=== PATIENT | male | born 1975 | race Caucasian/White ===

== ENCOUNTER 2018-12-03 09:00 | Inpatient (IN) | payer BC, OTHER ==
[~2018-12-03] VITALS: Ht 190.5 cm; Wt 197.2 kg
[2018-12-03 09:00] VITALS: BP 190/141
[~2018-12-03 09:00] MED LIST: ASPIRIN EC325 MG PO; BENICAR20 MG; BENICAR40 MG PO; CLEOCIN HCL150 MG PO; FORTESTA60 GM; HYDROCHLOROTHIA25 M2 PO; LIPITOR 10 MG10 M1 PO; MEDROLDOSEPACK PO; NOHOMEMEDICATIONS; PERCOCET 5-3251 EACH PO
[2018-12-03 09:19] LABS: ABSOLUTE NEUTROPHILS 7.4 thou/uL (1.4-8.2); EOSINOPHILS 1.4 % (0.0-3.0); HEMATOCRIT 47.3 % (42.0-52.0); HEMOGLOBIN 16.1 gm/dL (14.0-18.0); LYMPHOCYTES 14.8 % (24.0-44.0); MCH 28.6 pg (26.0-34.0); MCHC 34.1 g/dL (28.0-37.0); MCV 83.8 fL (80.0-100.0); MONOCYTES 7.4 % (1.0-8.0); PLATELET COUNT 214 thou/uL (150-400); POLYS 75.4 % (36.0-66.0); RBC 5.65 mil/uL (4.50-6.00); RDW 14.8 % (10.5-14.5); WBC 9.8 thou/uL (4.0-11.0)
[2018-12-03 09:29] LABS: ANION GAP 8 mmol/L (7-16); BUN 12 mg/dL (7-18); CHLORIDE 98 mmol/L (98-107); CO2 30 mmol/L (21-32); CREATININE 1.2 mg/dL (0.7-1.3); GLUCOSE 129 mg/dL (74-106); POTASSIUM 3.5 mmol/L (3.5-5.1); SODIUM 136 mmol/L (136-145)
[2018-12-03 09:38] LABS: ALBUMIN 3.8 g/dL (3.4-5.0); MAGNESIUM 2.1 mg/dL (1.8-2.4); SGOT 22 U/L (15-37); SGPT 39 U/L (30-65); TOTAL BILIRUBIN 1.6 mg/dL (<0.1-1.0); TOTAL PROTEIN 7.2 g/dL (6.4-8.2); TROPONIN-I <0.06 ng/mL (<0.06)
[2018-12-03 10:07] VITALS: BP 171/124
[2018-12-03 11:00] VITALS: BP 133/90
[2018-12-03 11:21] LABS: CHOLESTEROL 178 mg/dL (<200); HDL CHOLESTEROL 46 mg/dL (>40); LDL CHOLESTEROL 112 mg/dL (<100); TC:HDL 3.9 Ratio (Not establshd); TRIGLYCERIDE 101 mg/dL (<150); VLDL 20 mg/dL (<40)
[2018-12-03 11:25] VITALS: BP 144/94
--- NOTE | 2018-12-03 11:27 | NUR ---
REC PT TO ROOM APPROX 1115, A&0X4, NO SKIN ISSUES, ROOM AIR, AMB STEADY, ECHO COMING UP TO DO DIAGNOSTIC IN THE ROOM. PT'S DIET IN, GAVE HIM A SNACK OF APPLESAUCE AND TWO URINALS, GLASSES, CARDIAC MONITORED. DID DEMO OF CALL LIGHT USE, ENCOURAGED HIM TO USE CALL LIGHT FOR ANY NEEDS
[2018-12-03 11:48] LABS: TSH 2.07 uIU/mL (0.358-3.740)
[2018-12-03] MEDS ORDERED: IBUPROFEN 200200 M1 PO (12:23)
--- NOTE | 2018-12-03 14:49 | 2DMMODE ---
[facility] [place] [place] [address] 2 D/M-MODE ECHOCARDIOGRAM Name: KENDRA CASTILLO Room #: 212-P [facility] IN .R.#: [id number] Admission: 12/03/18 Attend Phys: Naveed Adams MD Discharge: Date of : 71 Date of Service: 12/03/18 1449 Report #: [id number] THIS REPORT FOR: //name// APPROVED REPORT Study performed: 12/03/2018 11:43:04 EXAM: Comprehensive 2D, Doppler, and color-flow Echocardiogram Patient Location: Bedside Room #: [facility] Status: routine BSA: 3.17 HR: 101 bpm BP: 144/94 mmHg Rhythm: Tachycardia Other Information Study Quality: Fair Indications Congestive Heart Failure Echo Enhancing Agent Indication: Endocardial border delineation Agent(s) / Amount(s) Used: Optison 5 cc 2D Dimensions RVDd: 51.64 mm IVSd: 11.04 (7-11mm) LVOT Diam: 27.90 (18-24mm) LVDd: 62.75 mm PWd: 10.57 (7-11mm) Ascending Ao: 36.06 (22-36mm) LVDs: 50.17 (25-40mm) Aortic Root: 34.46 mm Volumes Left Atrial Volume (Systole) Single Plane 4CH: 81.06 mL Single Plane 2CH: 103.74 mL LA ESV Index: 33.00 mL/m2 Aortic Valve AoV Peak Raz.: 1.08 m/s AO Peak Gr.: 4.63 mmHg LVOT Max P.86 mmHg LVOT Max V: 0.68 m/s JAMILA Vmax: 3.87 cm2 [facility] [address] [address] 2 D/M-MODE ECHOCARDIOGRAM Name: KENDRA CASTILLO Nelson Room #: 212-[facility] IN [facility]#: [id number] Admission: 12/03/18 Attend Phys: Naveed Adams MD Discharge: Date of : 71 Date of Service: 12/03/18 1449 Report #: [id number] Pulmonary Valve PV Peak Raz.: 0.78 m/s PV Peak Gr.: 2.44 mmHg Tricuspid Valve TR Peak Raz.: 2.95 m/s TR Peak Gr.: 34.83 mmHg PA Pressure: 35.00 mmHg Left Ventricle Left ventricle is dilated. There is global hypokinesis of the left ventricle. There is normal left ventricular wall thickness. Left ventricular ejection fraction is moderately decreased. LVEF is 40-45%. This study is not technically sufficient to allow evaluation of the LV diastolic function. Right Ventricle Right ventricle is dilated. Right ventricle is hypokinetic. Atria Left atrium is dilated. Right atrium is dilated. Aortic Valve The aortic valve is normal in structure. No aortic regurgitation is present. There is no aortic valvular stenosis. Mitral Valve The mitral valve is normal in structure. Moderate mitral regurgitation. No evidence of mitral valve stenosis. Tricuspid Valve The tricuspid valve is normal in structure. There is mild tricuspid regurgitation. Estimated PAP 35 plus the right atrial pressure. There is moderate pulmonary hypertension. Pulmonic Valve The pulmonary valve is normal in structure. There is no pulmonic valvular regurgitation. Great Vessels The aortic root is normal in size. The ascending aorta is normal in size. IVC is not well visualized. Pericardium There is no pericardial effusion. [facility] [place] [address] [place] [address] 2 D/M-MODE ECHOCARDIOGRAM Name: KENDRA CASTILLO Room #: 212-P [facility] IN M.R.#: [id number] Admission: 12/03/18 Attend Phys: Naveed Adams MD Discharge: Date of : 71 Date of Service: 12/03/18 1449 Report #: [id number] <Conclusion> Left ventricle is dilated. LVEF is 40-45%. There is global hypokinesis of the left ventricle. Right ventricle is dilated. Right ventricle is hypokinetic. Left atrium is dilated. Right atrium is dilated. The aortic valve is normal in structure. The mitral valve is normal in structure. Moderate mitral regurgitation with an eccentric jet The tricuspid valve is normal in structure. There is mild tricuspid regurgitation. Estimated PAP 35 plus the right atrial pressure. There is moderate pulmonary hypertension. The pulmonary valve is normal in structure. There is no pericardial effusion. <ELECTRONICALLY SIGNED> By: Jason Gregg MD 12/03/18 1449 1449 1449 Jason Gregg MD /INF
[2018-12-03 16:06] VITALS: BP 135/94
[2018-12-03 19:15] VITALS: BP 124/84
--- NOTE | 2018-12-04 04:04 | NUR ---
pt resting quietly in room thru the noc, education on new meds and fluid restriction given, vss, will con't to monitor per ppoc.
[2018-12-04 04:46] VITALS: BP 140/81
[2018-12-04 05:19] LABS: CALCIUM 8.6 mg/dL (8.5-10.1); POTASSIUM 3.7 mmol/L (3.5-5.1)
[2018-12-04 07:30] VITALS: BP 156/112
[2018-12-04 11:50] VITALS: BP 141/94
--- NOTE | 2018-12-04 12:28 | NUR ---
met with patient who admits with CHF. 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 Has health insurance. Girlfriend lives with patient able to assist at dc. Per RN Dr Chi wants casemgt to inquire into BIPAP for patient. Patient reports BIPAP at home broken. Does not recall DME company. reports serviced maybe 5 years ago. He is agreeable to any DME company. Noted patient not on bipap in hospital setting. Sent referral to [facility] to review.
[2018-12-04 15:30] VITALS: BP 136/99
--- NOTE | 2018-12-04 17:32 | NUR ---
ASSESSMENT CHARTED - MEDS PER JUN - PT WITH CO'S OF PAIN IN LEGS- RATED 4-5 REFUSED THE NEED FOR PAIN MEDICATION. PANKAJ DIET AND FLUIDS WITH NO CO'S OF NAUSEA. UP AD MARK IN ROOM. PT TO BE NPO AFTER MN FOR CATH IN THE AM - PERMIT SIGNED - NO CO'S AT THE PRESENT TIME.
[2018-12-04 19:41] VITALS: BP 129/86
[2018-12-05 06:15] VITALS: BP 138/60
[2018-12-05 07:21] LABS: CREATININE 1.2 mg/dL (0.7-1.3); POTASSIUM 3.7 mmol/L (3.5-5.1)
--- NOTE | 2018-12-05 07:44 | NUR ---
pt resting quietly in room thru the noc sats 97 to 100% on ra, no c/o pain, up voiding in hat, npo since mnoc for c. cath, report given to next shift to con't with ppoc.
--- NOTE | 2018-12-05 08:19 | EKG ---
[address] [address] ELECTROCARDIOGRAM REPORT Name: KENDRA CASTILLO Room #: 212-P ADM IN M.R.#: [id number] Admission: 12/03/18 Attend Phys: Naveed Aadms MD Discharge: Date of : 71 Report #: [id number] THIS REPORT FOR: //name// [facility] ED Test Date: 2018-12-03 Test Time: 09:09:03 Pat Name: KENDRA CASTILLO Department: Room: 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
--- NOTE | 2018-12-05 10:57 | NUR ---
Nutrition: Seen per moderate risk screening, BMI >40 (55.9 kg/m2), class III high risk obesity. Admit: SOA, new CHF. Notes indicate acute on chronic systolic CHF. NPO for heart procedure this AM. Laying flat during education. Pt trying to eat quite healthy. Choosing high protein (lean sources) and trying to maintain low kcals with lots of fruits, vegetables. Admits to +30# recent wt gain. Diuresing, on spironolactone and Lasix. Total cholesterol, HDL, and triglycerides all WNL. Focused education on CHF - low Na and heart healthy eating. Encouraged smaller more frequent meals/snacks 4-6x daily for smaller portions to help support wt loss efforts too. Pt very receptive and agreed to take home materials. With education in place, low nutrition risk.
[2018-12-05 11:14] LABS: BE(vivo) 3.3 mmol/L (-2 to +3); HCO3 27.5 mmol/L (22.0-26.0); PCO2 40.6 mmHg (35.0-45.0); PO2 80.4 mmHg (80.0-100.0); pH 7.449 (7.360-7.450); sO2 96.3 % (92.0-98.0)
[2018-12-05 12:05] VITALS: BP 112/71
--- NOTE | 2018-12-05 13:11 | NUR ---
REFAXED CLINICAL NOTES TO [facility] FOR A REPLACEMENT CPAP SPOKE WITH CAROL ESPINOZA SHE WILL REVIEW AND WILL NOTIFY THE COMPANY PT RECEIVED CPAP FROM AND WILL SEE IF THEY WILL BE ABLE TO ISSUE NEW CPAP FOR PT. DCP TO FOLLOW.
--- NOTE | 2018-12-05 13:53 | CATHLAB ---
[facility] [address] [place] [address] INVASIVE PROCEDURE REPORT Name: KENDRA CASTILLO Room #: 212-P ADM IN .R.#: [id number] Admission: 12/03/18 Attend Phys: Naveed Adams MD Discharge: Date of : 71 Date of Service: 12/05/18 1353 Report #: [id number] THIS REPORT FOR: //name// APPROVED REPORT Study performed: 12/05/2018 07:10:14 Patient Details Patient Status: In-Patient Room #: The patient is a 43 year-old male Event Personnel Miles Ocampo Sdc Teacher, Gerald Jarvis RN RN, Elena Collado RN RN, Josephine Huff Monitor, Traci Seth RTR, JOSE Scrub, Giovanna José RTR Scrub Procedures Performed Art Access - R femoral artery* Raciel Access - R femoral vein 39464 Initial Mod Sed Same Phys/QHP Gr5y [id number] 39930 Mod Sed Same Phys/QHP Ea 889864 Right and Left Heart Cath w/or w/o Coronarie [id number] [facility] Aortogram Abdominal Peripheral Angio 396923 Hemostasis w/ Mynx Indication Chest pain Procedure Narrative The patient was brought urgently to the Cardiac Catheterization Laboratory and was prepped and draped in a sterile manner. The Right Groin^ was infiltrated with 1% Lidocaine subcutaneous anesthesia. A Right Heart Catheterization was performed with a 7 Fr. [place]-Gregg catheter and pressure were recorded. Cardiac outputs were obtained by the Thermal Dilution method. A PINNACLE 6FR Sheath #[id number] sheath was inserted into the RFA^. Coronary angiography was performed using coronary diagnostic catheters. The right coronary system was accessed and visualized with a JR 4 catheter. The left coronary system was accessed and visualized with a JL 4 catheter. The left ventricle was accessed and visualized with a Pigtail catheter. Left ventriculogram was performed in STANLEY projection. An aortogram of the abdominal aorta was performed. Pre-demployment femoral angiogram was performed . Closure device was deployed with a 6 Fr Mynx. Hemostasis was obtained with manual pressure following sheath removal without any complications. The patient tolerated the procedure well and there were no complications associated with the procedure. There was no hematoma. [address] [address] INVASIVE PROCEDURE REPORT Name: KENDRA CASTILLO Room #: 212-P [facility]#: [id number] Admission: 12/03/18 Attend Phys: Naveed Adams MD Discharge: Date of : 71 Date of Service: 12/05/18 1353 Report #: [id number] Intraoperative Conscious Sedation Sedation start time: 07:55 Case end Time: 08:30 Fentanyl 100 mcg Versed 2 mg Fluoro Time: 5.07 minutes Dose: DAP 68557.00 cGycm2 1601 mGy Contrast Type and Amount: Omnipaque 130 ml Hemodynamics The right atrial mean pressure is 24 mmHg. The right ventricular pressure is 74/24 mmHg. The pulmonary artery pressure is 77/47 mmHg with a mean of 59 mmHg. The aortic pressure is 159/108 mmHg with a mean of 127 mmHg. The left ventricular pressure is 156/25 mmHg with a mean of mmHg. The left ventricular end diastolic pressure is 48 mmHg. The cardiac output using thermo method is 2.85 L/min. The cardiac index using thermo method is 0.92 L/min/m2. Conclusion #1 successful right heart catheterization with cardiac output by thermodilution. Markedly elevated pulmonary and wedge pressure see above hemodynamics #2 mildly dilated left ventricle with moderate to moderately severe global hypokinesis EF 35-40% range #3 the left coronary system is a large and ectatic system with no occlusive disease. Circumflex is nondominant. #4 large dominant right coronary artery also mildly ectatic dominant system no occlusive disease #5 abdominal aortogram reveals no evidence of aneurysm mild tortuosity. Recommendations and plan: Continue aggressive risk factor modification. Lesion has moderate demise of his left ventricular function and significant volume overload. Transfer back to CCU to continue aggressive diuresis addition no beta grant and afterload reducers to be added. <ELECTRONICALLY SIGNED> By: Miles Ocampo MD, FACC 12/05/18 1353 1353 135 Miles Ocampo MD, FACC /INF
[2018-12-05 15:55] VITALS: BP 110/73
--- NOTE | 2018-12-05 17:03 | NUR ---
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 GIVEN TYLENOL FOR CO'S OF BACK PAIN WHILE LAYING FLAT. TYLENOL WITH MOD EFFECT. GROIN SITE AND VITAL SIGNS STABLE POST CATH. RODRIGUEZ CATH PLACED WHIL PATIENT IN LAB - CLEAR YELLOW URINE. PT PANKAJ DIET AND FLUIDS- NO CO'S OF NAUSEA. PT HAS BEEN OUT OF BED POST CATH AND GROIN SITE HAS REMAINED STABLE. PT WITH NO CO'S AT THE PRESENT TIME.
[2018-12-05 19:40] VITALS: BP 100/69
[2018-12-06 00:13] VITALS: BP 119/91
--- NOTE | 2018-12-06 03:45 | NUR ---
ASSUMED CARE OF PATIENT AT 1900. VSS, AFEBRILE. DENIES PAIN, SOA OR N/V. DIURESING WELL. RODRIGUEZ IN PLACE. NO S/S OF DISTRESS, PROGRESSING TOWARDS POC GOALS.
[2018-12-06 04:15] VITALS: BP 135/93
[2018-12-06 06:26] LABS: CALCIUM 8.8 mg/dL (8.5-10.1); CREATININE 1.1 mg/dL (0.7-1.3)
[2018-12-06 07:35] VITALS: BP 105/74
--- NOTE | 2018-12-06 07:50 | NUR ---
ASSUMED CARE OF PT FOR DAY SHIFT, SLEEPING. 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 DISC UPON READING NOTES HE HAD DRESSING AND HEMOSTATIS WAS DONE. RIGHT GROIN SITE DRESSING INTACT, LOOKS LIKE SMALL AMT OF DRIED BLOOD ON DRESSING FROM PRIOR. PAIN ONLY MINIMAL IN R GROIN SITE. ROOM AIR. CARDIAC MONITORED. HAS RODRIGUEZ FOR ACCURATE I&0S. APPETITE GOOD. WILL CHECK TO SEE IF ANY RESTRICTIONS. AND ENCOURAGED TO USE CALL LIGHT FOR ANY NEEDS
[2018-12-06 11:36] VITALS: BP 104/68
[2018-12-06 13:55] VITALS: BP 124/48
--- NOTE | 2018-12-06 18:02 | NUR ---
DC timeframe uncertain. Pt continues on iv lasix. Cpap script in place with [facility]. Pt to call them once he is home for setup of new equipment. No other cm interventions indicated at this time.
[2018-12-06 18:03] VITALS: BP 104/68
--- NOTE | 2018-12-07 04:50 | NUR ---
RECEIVED PT'S CARE AT 1936; PT. ON BED; AXO4; DURING ASSESSMENT NO C/O PAIN; EDUCATED ABOUT FALL PREVENTION; ST. UNDERSTANDING; WHILE SLEEPING USING O2 ON THE MOUTH DUE TO NO; [facility] DOES NOT HAVE ADEQUATE MASK FOR C-PAP; EDUCATED ABOUT FLUID CONTROL; ST. UNDERSTANDING; ABLE TO REST FOR A FEW HOURS THROUGH THE NIGHT WITH EYES CLOSED; DURING ROUNDINGS AT 0356; PT. AWAKE; WATCHING TV; ASSESSMENT CHARGED; FOLLOWING POC; MONITORING; WILL PASS ON REPORT.
[2018-12-07 05:56] LABS: CREATININE 1.2 mg/dL (0.7-1.3); POTASSIUM 4.4 mmol/L (3.5-5.1)
[2018-12-07 06:11] VITALS: BP 141/79
[2018-12-07 07:59] VITALS: BP 115/74
[2018-12-07 12:08] VITALS: BP 108/67
[2018-12-07 13:14] VITALS: BP 104/68
--- NOTE | 2018-12-07 13:16 | NUR ---
DCP SPOKE WITH DR. KEYES PT SAID HE DID NOT KNOW WHICH DME COMPANY HE WAS GETTING HIS NEW CPAP MACHINE FROM. DCP WENT SPOKE WITH PT THAT HE IS TO CALL [facility] PATIENT ONCE DISCHARGED AND PHONE NUMBER IS ON DC ORDERS AND THEY WILL ARRANGE DELIVERY OF CPAP. PT WAS VERY APPRECIATIVE OF INFORMATION. ANTICIPATE DC TOMORROW.
[2018-12-07 20:33] VITALS: BP 107/64
[2018-12-08 05:08] VITALS: BP 107/64; BP 95/65
[2018-12-08 05:18] LABS: HEMATOCRIT 46.1 % (42.0-52.0); HEMOGLOBIN 15.5 gm/dL (14.0-18.0); MCH 28.8 pg (26.0-34.0); MCHC 33.7 g/dL (28.0-37.0); MCV 85.3 fL (80.0-100.0); RBC 5.4 mil/uL (4.50-6.00); RDW 15.3 % (10.5-14.5); WBC 9.5 thou/uL (4.0-11.0)
--- NOTE | 2018-12-08 05:32 | NUR ---
RECEIVED PT'S CARE AT 1930; PT. ON BED; AOX4; DURING ASSESSMENT PT. C/O DIZZINESS; BP CHECKED; WNL; EDUCATED ABOUT SITTING ON THE SIDE OF THE BED BEFORE STANDING; ST. UNDERSTANDING; HS MEDICATION GIVEN; NO C/O PAIN; RE-ASSESSMENT NO DIZZINESS; ABLE TO REST THROUGH THE NIGHT WITH EYES CLOSED; MONITORING; ASSESSMENT CHARGED; FOLLOWING POC; WILL PASS ON REPORT.
[2018-12-08 05:33] LABS: CALCIUM 9.3 mg/dL (8.5-10.1); CREATININE 1.3 mg/dL (0.7-1.3)
[2018-12-08 05:50] VITALS: BP 113/73
[2018-12-08 07:49] VITALS: BP 95/66
[2018-12-08] MEDS ORDERED: LIPITOR 20 MG T20 M1 PO ×2 (11:02→11:27)
[2018-12-08] MEDS ORDERED: CARVEDILOL25 MG PO ×2 (11:03→11:27)
[2018-12-08] MEDS ORDERED: SPIRONOLACTONE25 M1 PO ×2 (11:03→11:27)
[2018-12-08] MEDS ORDERED: BENICAR40 MG PO ×2 (11:03→11:27)
[2018-12-08] MEDS ORDERED: TORSEMIDE20 MG PO ×2 (11:04→11:27)
[2018-12-08] MEDS ORDERED: K-DUR 20 MEQ T20 MEQ PO ×2 (11:05→11:27)
[2018-12-08 12:25] VITALS: BP 90/67
--- NOTE | 2018-12-08 13:11 | NUR ---
ASSUMED CARE @ 0700 12/08/18, PT ASSESSMENTS AND VSS COMPLETE PER CCU PROTOCOL. PT ALERT AND ORIENTED X 4, PT ABLE TO FOLLOW ALL COMMANDS. PT ON RA, SATS IN THE 90'S WHEN SPOT CHECKED, NO SIGNS OF SOA NOTED. DISCHARGE EDUCATION AND INSTRUCTIONS GIVEN, PT VERBALIZES UNDERSTANDING, WILL BE TRANSPORTED WITH THE ASSIST OF NURSING STAFF.
== END 2018-12-08 14:18 | disposition home or self-care (01) | DRG 287 ==
LOC: ER 09:00 → EROBS 10:06 → 2N 10:06
PROVIDERS: Emergency Medicine; Hospitalist; Internal Medicine Pulmonary Disease; Nurse Practitioner; Nurse Practitioner Adult Health; ADMIT Internal Medicine
PROC: B2111ZZ Fluoroscopy of Multiple Coronary Arteries using Low Osmolar Contrast (ICD-10-PCS; principal; 2018-12-05)
PROC: B2151ZZ Fluoroscopy of Left Heart using Low Osmolar Contrast (ICD-10-PCS; principal; 2018-12-05)
PROC: 4A023N8 Measurement of Cardiac Sampling and Pressure, Bilateral, Percutaneous Approach (ICD-10-PCS; principal; 2018-12-05)
DX: I11.0 Hypertensive heart disease with heart failure (principal); Z68.43 Body mass index [BMI] 50.0-59.9, adult; N17.9 Acute kidney failure, unspecified; E78.5 Hyperlipidemia, unspecified; G47.33 Obstructive sleep apnea (adult) (pediatric); I50.43 Acute on chronic combined systolic (congestive) and diastolic (congestive) heart failure; I27.20 Pulmonary hypertension, unspecified; I16.0 Hypertensive urgency; G51.0 Bell's palsy; I42.9 Cardiomyopathy, unspecified; E66.01 Morbid (severe) obesity due to excess calories; I08.1 Rheumatic disorders of both mitral and tricuspid valves; Z86.010 Personal history of colon polyps; Z87.81 Personal history of (healed) traumatic fracture; Z79.899 Other long term (current) drug therapy; Z88.5 Allergy status to narcotic agent; Z88.0 Allergy status to penicillin; Z88.2 Allergy status to sulfonamides; Z88.8 Allergy status to other drugs, medicaments and biological substances; Z83.3 Family history of diabetes mellitus; Z82.49 Family history of ischemic heart disease and other diseases of the circulatory system; Z80.8 Family history of malignant neoplasm of other organs or systems; Z82.5 Family history of asthma and other chronic lower respiratory diseases
CPT/HCPCS: 10081; 10194

== ENCOUNTER 2019-03-01 16:34 | Inpatient (IN) | payer BC, OTHER ==
[~2019-03-01] VITALS: Ht 193 cm; Wt 187.2 kg
--- NOTE | ~2019-03-01 | HC ---
[facility] [address] [place] [address] CONSULTATION Name: KENDRA CASTILLO Room #: 210-P ADM IN M.R.#: [id number] Admission: 03/01/19 Attend Phys: Lily Minor MD Discharge: Date of : 71 Report #: [id number] THIS REPORT FOR: //name// CC: [facility] physician/PCP Lily Minor REASON FOR CONSULTATION: Acute kidney injury and blacking out. Dictation Ends Here. By: 5 0832 Elidia Rivera MD /nt
--- NOTE | ~2019-03-01 | EEG ---
[facility] [place] [address] ELECTROENCEPHALOGRAM Name: KENDRA CASTILLO Room #: 210-P ADM IN M.R.#: [id number] Admission: 03/01/19 Attend Phys: Lily Minor MD Discharge: Date of : 71 Report #: [id number] THIS REPORT FOR: //name// CC: [facility] physician/PCP Lily Minor DATE OF SERVICE: 03/04/2019 This patient had an episode of syncope. EEG is being done to evaluate the patient for the possibility of seizure. EEG was done by placing the electrodes by standard 10-20 system of electrode placement. Both referential and sequential montages were used for recording. Background activity in this patient's EEG is about 11 Hz and 30 microvolt. It is a symmetrical activity. Photic stimulation is unremarkable. The patient went to sleep that is associated with bilateral slowing and vertex sharp waves. Throughout the record, no active epileptiform activity was noticed. IMPRESSION: This patient's EEG is within normal limits. Thank you very much for this referral. By: 1728 1809 Irvin Montez MD /nt
--- NOTE | ~2019-03-01 | HC ---
[facility] [place] [address] CONSULTATION Name: KENDRA CASTILLO Room #: 210-P [facility] IN .R.#: [id number] Admission: 03/01/19 Attend Phys: Lily Minor MD Discharge: Date of : 71 Report #: [id number] THIS REPORT FOR: //name// CC: [facility] physician/PCP Lily Minor REASON FOR CONSULTATION: Acute kidney injury. REASON FOR PRESENTATION: Syncope. HISTORY OF PRESENT ILLNESS: This is a 43-year-old with past medical history of cardiomyopathy followed by Dr. Ocampo. He was at work few days ago when he started to feel dizzy, lightheaded and blacked out. He denies any prior similar episodes. He had some chest pain associated with nausea. He describes the chest pain as crushing central, with no radiation. In November 2018, the patient was found to have ejection fractions of around 35%. He was initiated on heart failure therapy, including carvedilol, olmesartan, spironolactone, torsemide. The patient has been trying to lose weight ever since the diagnosis and he was able to drop his weight by 65 pounds. He is also watching his diet. Apparently with those above-mentioned lifestyle modifications, the patient's blood pressure has been under well control. With the above-mentioned medications, the patient's blood pressure was on the low side upon his presentation. He received a CT abdomen and pelvis with a CT angiogram. This has resulted in contrast-induced nephropathy with the creatinine peaking at 2.5. He is not aware of any previous medical kidney-related issues. No nonsteroidal anti-inflammatory medication usage. No known genetic or inherited kidney disease in the family. No known nephrolithiasis or cystic kidney disease. PAST MEDICAL HISTORY: 1. Cardiomyopathy with ejection fractions of around 35%. 2. Hypertension. 3. Hyperlipidemia. 4. Morbid obesity. 5. Obstructive sleep apnea. PAST SURGICAL HISTORY: 1. Tonsillectomy. 2. Right ankle fracture surgery. 3. Right knuckle surgery. 4. Right wrist carpal tunnel surgery. 5. Post-cardiac ablation. 6. Adenoidectomy. SOCIAL HISTORY: He works for ____ company. No reported drug or alcohol abuse. FAMILY HISTORY: Significant for dad with COPD, diabetes and hypertension. [address] [address] CONSULTATION Name: KENDRA CASTILLO Room #: 210-P [facility] IN M.R.#: [id number] Admission: 03/01/19 Attend Phys: Lily Minor MD Discharge: Date of : 71 Report #: [id number] REVIEW OF SYSTEMS: GENERAL: No fever or chills, but significant weakness. CARDIOVASCULAR: Chest pain as mentioned in the history of present illness. PULMONARY: No cough or hemoptysis. GASTROINTESTINAL: Significant for nausea associated with his chest pain. No hematochezia, no melena. GENITOURINARY: No frequency, no urgency. MUSCULOSKELETAL: No joint pain, no joint swelling. NEUROLOGICAL: As per the history of present illness. SKIN: No rash or ulcerations. ALLERGIES: PENICILLIN and SULFA. PHYSICAL EXAMINATION: GENERAL: He is alert and oriented. VITAL SIGNS: Temperature is 36.2, blood pressure is 134/77. HEAD AND NECK: No jugular venous distention, no bruit, no thyromegaly. CHEST: Clear to auscultation bilaterally. CARDIOVASCULAR: Regular with no rub detected. ABDOMEN: Soft, nontender with no hepatosplenomegaly. LOWER EXTREMITIES: No edema with intact peripheral pulses. LABORATORY DATA: Reviewed. White blood cell count is 6.8, hemoglobin is 11, platelet is 148. Sodium is 141, potassium is 4.4, BUN is 33, creatinine is 1.8, down from 2.5. Uric acid is high at 13.3. IMPRESSION: 1. Acute kidney injury. 2. Contrast-induced nephropathy. 3. Nonischemic cardiomyopathy. 4. Hypertension. 5. Hyperlipidemia. 6. Obstructive sleep apnea. PLAN: 1. The patient's rise in creatinine is expected with his hypotension and contrast exposure. This had been improving. I agree with holding all of the blood pressure medications other than carvedilol. 2. Continue IV fluid. 3. Continue to hold spironolactone and diuretics. 4. Monitor his urine output and electrolytes. 5. Expect his kidney function to fully recover in the next 24 hours to [address] [address] CONSULTATION Name: KENDRA CASTILLO Room #: 210-P [facility] IN .R.#: [id number] Admission: 03/01/19 Attend Phys: Lily Minor MD Discharge: Date of : 71 Report #: [id number] hours. 6. We will continue to follow along. By: 0837 0915 Elidia Rivera, /nt
[~2019-03-01 16:34] MED LIST changes: +CARVEDILOL25 MG PO; +IBUPROFEN 200200 M1 PO; +K-DUR 20 MEQ T20 MEQ PO; +LIPITOR 20 MG T20 M1 PO; +SPIRONOLACTONE25 M1 PO; +TORSEMIDE20 MG PO
[2019-03-01 16:35] VITALS: BP 95/55
[2019-03-01 17:01] LABS: ABSOLUTE NEUTROPHILS 5.6 thou/uL (1.4-8.2); BASOPHILS 0.6 % (0.0-2.0); EOSINOPHILS 3.1 % (0.0-3.0); HEMATOCRIT 34.7 % (42.0-52.0); LYMPHOCYTES 18.4 % (24.0-44.0); MCHC 34.4 g/dL (28.0-37.0); MCV 84.2 fL (80.0-100.0); MONOCYTES 9.6 % (1.0-8.0); PLATELET COUNT 165 thou/uL (150-400); POLYS 68.3 % (36.0-66.0); RBC 4.12 mil/uL (4.50-6.00); RDW 17.3 % (10.5-14.5); WBC 8.2 thou/uL (4.0-11.0)
[2019-03-01 17:04] LABS: ANION GAP 12 mmol/L (7-16); BUN 55 mg/dL (7-18); CHLORIDE 102 mmol/L (98-107); CO2 23 mmol/L (21-32); CREATININE 2.9 mg/dL (0.7-1.3); GLUCOSE 96 mg/dL (74-106); POTASSIUM 4.3 mmol/L (3.5-5.1); SODIUM 137 mmol/L (136-145)
[2019-03-01 17:13] LABS: TROPONIN-I <0.06 ng/mL (<0.06)
[2019-03-01 18:04] LABS: URINE CREATININE-RANDOM* 49.6 mg/dL
[2019-03-01 18:07] LABS: AMP/METHAMP Negative (Negative); BARBITURATES Negative (Negative); BENZODIAZEPINES Negative (Negative); COCAINE Negative (Negative); METHADONE Negative (Negative); OPIATES Negative (Negative); PCP Negative (Negative)
[2019-03-01 20:15] VITALS: BP 100/59
[2019-03-01 20:23] VITALS: BP 103/61
[2019-03-01 21:20] VITALS: BP 127/74
[2019-03-01] MEDS ORDERED: BENICAR20 MG PO (23:02)
[2019-03-01] MEDS ORDERED: TORSEMIDE20 MG PO (23:04)
[2019-03-02] VITALS (8 sets, daily range): BP systolic 98–136; BP diastolic 54–77
--- NOTE | 2019-03-02 03:34 | NUR ---
ASSESSMENTS CHARTED, MEDS GIVEN CHARTED. PATIENT ARRIVED FROM ED SHORTLY AFTER SHIFT STARTED. PATIENT WAS SETTLED INTO ROOM AND ADMITTED INTO THE COMPUTER SYSTEM. PATIENT ABLE TO ANSWER QUESTIONS FOR HIMSELF. ON ROOM AIR. DENIED PAIN. VSS. PATIENT WEARING HEART MONITOR FROM DR. BOYD. IV DRIP STARTED. CONSULTS FOR OLIVER AND BATCHU WERE ORDERED ROUTINE.
[2019-03-02 04:57] LABS: CALCIUM 8.7 mg/dL (8.5-10.1); CREATININE 2.5 mg/dL (0.7-1.3); POTASSIUM 4.1 mmol/L (3.5-5.1)
--- NOTE | 2019-03-02 13:43 | NUR ---
Pt oriented x 3. Acute memory was intact but pt stated that he could not remember how he came to hospital. LS clear. BP was soft on lying position. Orthostatic Bp was checked. No c/o pain. [address] were in [address]. Pt refused taking Aspirin, stating that Dr. Ocampo told him to do so. This nurse notified Dr. Ocampo's SUBWAY REPAIR SUPERVISOR, Kim. SUBWAY REPAIR SUPERVISOR said that she would review. was consulted due to PAUL. Dr. Rivera ordered NS.
[2019-03-03] VITALS (8 sets, daily range): BP systolic 110–134; BP diastolic 65–87
[2019-03-03 04:57] LABS: ABSOLUTE NEUTROPHILS 3.9 thou/uL (1.4-8.2); BASOPHILS 0.8 % (0.0-2.0); EOSINOPHILS 3.9 % (0.0-3.0); HEMATOCRIT 31.9 % (42.0-52.0); LYMPHOCYTES 27.4 % (24.0-44.0); MCH 29.6 pg (26.0-34.0); MCHC 34.5 g/dL (28.0-37.0); MCV 85.7 fL (80.0-100.0); MONOCYTES 11.3 % (1.0-8.0); PLATELET COUNT 148 thou/uL (150-400); POLYS 56.6 % (36.0-66.0); RBC 3.72 mil/uL (4.50-6.00); WBC 6.8 thou/uL (4.0-11.0)
[2019-03-03 05:16] LABS: ALBUMIN 3.5 g/dL (3.4-5.0); CALCIUM 9.4 mg/dL (8.5-10.1); CREATININE 1.8 mg/dL (0.7-1.3); MAGNESIUM 2.1 mg/dL (1.8-2.4); PHOSPHORUS 3.7 mg/dL (2.5-4.9); POTASSIUM 4.4 mmol/L (3.5-5.1)
--- NOTE | 2019-03-03 05:49 | NUR ---
ASSESSMENTS CHARTED, MEDS GIVEN REPORTED. PATIENT RESTING IN BED DURING SHIFT. UP AT MARK IN ROOM. DENIES PAIN. IV MEDS RUNNING. ORTHOSTATIC BP DONE. PATIENT WEARING HEART MONITOR FROM CARDIOLOGY OFFICE. PATIENT MAY HAVE MRI OF HEAD TODAY.
--- NOTE | 2019-03-03 07:53 | EKG ---
[address] [address] ELECTROCARDIOGRAM REPORT Name: KENDRA CASTILLO Room #: 210-P ADM IN .R.#: [id number] Admission: 03/01/19 Attend Phys: Lily Minor MD Discharge: Date of : 71 Report #: [id number] THIS REPORT FOR: //name// [facility] ED Test Date: 2019-03-01 Test Time: 16:41:43 Pat Name: KENDRA KAMINSKIMELANY Department: Room: 210 Gender: M Microstrategy Architect: ROM : 1975 Requested By: José Luis Gonsalez Order Number: [id number] MD: Juan Serra Measurements Intervals [place] Rate: 77 P: 14 TN: 172 QRS: -3 QRSD: 115 T: 3 QT: 359 QTc: 407 Interpretive Statements Sinus rhythm Normal tracing Compared to ECG 12/03/2018 09:09:03 Heart rate has slowed Electronically Signed On 03-03-2019 7:53:22 JEWEL INSERTER by Juan Serra [email or web address] <ELECTRONICALLY SIGNED> By: Juan Serra MD, [facility] 03/03/19 0753 1641 40 Juan Serra MD, FACC /EPI
--- NOTE | 2019-03-03 09:17 | 2DMMODE ---
[facility] [place] [address] 2 D/M-MODE ECHOCARDIOGRAM Name: KENDRA CASTILLO Room #: 210-P [facility] IN ..#: [id number] Admission: 03/01/19 Attend Phys: Lily Minor, Discharge: Date of : 71 Report #: [id number] THIS REPORT FOR: //name// APPROVED REPORT Study performed: 03/03/2019 08:25:59 EXAM: Comprehensive 2D, Doppler, and color-flow Echocardiogram Patient Location: Echo lab Room #: 210 Status: routine BSA: 2.95 HR: 70 bpm BP: 117/65 mmHg Rhythm: NSR Other Information Study Quality: Adequate Indications Cardiomyopathy Chest Pain Hypertension/HDD Echo Enhancing Agent Indication: Endocardial border delineation Agent(s) / Amount(s) Used: Optison 3 cc 2D Dimensions RVDd: 43.79 mm IVSd: 12.48 (7-11mm) LVDd: 60.74 mm PWd: 12.32 (7-11mm) Ascending Ao: 32.63 (22-36mm) LVDs: 43.88 (25-40mm) Aortic Root: 36.61 mm IVC: 14.00 mm Volumes Left Atrial Volume (Systole) Single Plane 4CH: 66.99 mL Single Plane 2CH: 51.24 mL LA ESV Index: 22.00 mL/m2 Aortic Valve AoV Peak Raz.: 1.25 m/s AO Peak Gr.: 6.22 mmHg LVOT Max P.86 mmHg LVOT Max V: 0.85 m/s [facility] [address] [place] [address] 2 D/M-MODE ECHOCARDIOGRAM Name: KENDRA CASTILLO Room #: 210-P [facility]#: [id number] Admission: 03/01/19 Attend Phys: Lily Minor, Discharge: Date of : 71 Report #: [id number] Mitral Valve E/A Ratio: 1.0 MV Decel. Time: 245.91 ms MV E Max Raz.: 0.83 m/s MV A Raz.: 0.81 m/s MV PHT: 71.31 ms IVRT: 83.04 ms Pulmonary Valve PV Peak Raz.: 1.47 m/s PV Peak Gr.: 8.62 mmHg Pulmonary Vein P Vein S: 0.50 m/s P Vein A: 0.22 m/s P Vein D: 0.41 m/s P Vein A Dur.: 92.3 msec P Vein S/D Ratio: 1.22 Tricuspid Valve TR Peak Raz.: 2.41 m/s TR Peak Gr.: 23.25 mmHg PA Pressure: 28.00 mmHg Left Ventricle Left ventricle is dilated. Mild concentric left ventricular hypertrophy. Left ventricular systolic function is borderline. LVEF is 45-50%. Grade II - pseudonormal filling dynamics. Right Ventricle Right ventricle is at the upper limits of normal. The right ventricular systolic function is normal. Atria The left atrium size is normal. Right atrium is borderline dilated. Aortic Valve The aortic valve is normal in structure. No aortic regurgitation is present. There is no aortic valvular stenosis. Mitral Valve The mitral valve is normal in structure. Mild mitral regurgitation. No evidence of mitral valve stenosis. Tricuspid Valve The tricuspid valve is normal in structure. There is trace tricuspid regurgitation. Estimated PAP 28 mmHg. There is no pulmonary [facility] [place] [address] 2 D/M-MODE ECHOCARDIOGRAM Name: KENDRA CASTILLO Room #: 210-P [facility] IN ..#: [id number] Admission: 03/01/19 Attend Phys: Lily Minor, Discharge: Date of : 71 Report #: [id number] hypertension. Pulmonic Valve The pulmonary valve is normal in structure. Trace pulmonic regurgitation. Great Vessels The aortic root is normal in size. IVC is normal in size and collapses >50% with inspiration. Pericardium There is no pericardial effusion. <Conclusion> Left ventricle is dilated. Mild concentric left ventricular hypertrophy. LVEF is 45-50%. Grade II - pseudonormal filling dynamics. Right ventricle is at the upper limits of normal. Right atrium is borderline dilated. The aortic valve is normal in structure. Mild mitral regurgitation. There is trace tricuspid regurgitation. Estimated PAP 28 mmHg. There is no pulmonary hypertension. The aortic root is normal in size. There is no pericardial effusion. <ELECTRONICALLY SIGNED> By: Miles Ocampo MD, FACC 03/03/19916 6 6 Miles Ocampo MD, FACC /INF
--- NOTE | 2019-03-03 14:05 | NUR ---
Assess due to pt with BMI 48.8=extreme class III obesity. Admit with CHF, PAUL, and memory impairment. Recently here in 11/2018 and received diet education on heart healthy wt loss diet. Pt states he has been making changes, eating more fruits/vegetable smoothies, lean protein, and cutting back on Na intake. Has lost 65 lb reported likely combination fluid and true wt loss. Answered additional questions regarding diet. Continue to promote wt loss. Low nutrition risk
--- NOTE | 2019-03-03 17:57 | NUR ---
ASSUMED CARE 0700.ALERT X4, MINIMAL PAIN IN RIGHT PECTORAL THAT RADIATS DOWN SIDE, VOICED HAZY VISION AND SLIGHT DIZZY DURING 1600 ROUNDS. PLACED PATIENT ON FALL PRECAUTION FOR THIS REASON. PATIENT ALSO STATES THE ATROVASTAN IS CAUSING THE SYMPTOMS AND HE DOES NOT TAKE THE STATIN AT HOME. HE ALSO STATED HE HAS BEEN HAVING THE VISUAL DISTURBANCE AND DIZZINESS FOR A FEW MONTHS. THIS MORNING PATIENT DENIES THESE SYMPTONS. DR BOYD NOTIFIED AND STATIN PLACED ON HOLD. RAMIREZ IS COMPLIANT WITH CARES. CALL LIGHT IN REACH.
[2019-03-04 05:18] VITALS: BP 124/73
--- NOTE | 2019-03-04 05:36 | NUR ---
ASSUMED PT CARE AT 1900. VSS. PT A&0X4. PT HAD AN UNEVENTFUL NIGHT. NO COMPLAINTS OF PAIN OR DISCOMFORT. PT IS STABLE, MRI THIS AM, MRI QUESTIONAIRE COMPLETED AND FAXED OVER TO THE OFFICE. WILL CONTINUE TO MONITOR PER POC.
[2019-03-04 05:59] LABS: ALBUMIN 3.5 g/dL (3.4-5.0); CALCIUM 9.1 mg/dL (8.5-10.1); CREATININE 1.5 mg/dL (0.7-1.3); PHOSPHORUS 3.6 mg/dL (2.5-4.9); POTASSIUM 4.1 mmol/L (3.5-5.1)
[2019-03-04 08:00] VITALS: BP 133/75
[2019-03-04] MEDS ORDERED: LIPITOR 20 MG T20 M1 PO (15:15)
[2019-03-04 15:39] VITALS: BP 133/75
--- NOTE | 2019-03-04 16:05 | NUR ---
ASSUMED CARE 0700. ALERT X4, DENIES PAIN, DENIES VISUAL DISTURBANCE AND DIZZINESS, ACTIVITY TOLERATED. MRI AND EEG COMPLETED. DC HOME WITH SELF CARE. REVIEWED HOME MEDS WITH PATIENT. EDUCATED TO FOLLOW UP WITH PERSONAL SECRETARY REGARDING ANY QUESTION OF HOME MEDS AND TO FOLLOW UP WITH MARKETING PROFESSIONAL FROM DR BOYD OFFICE NEXT MONTH. IV AND HEART MONITOR REMOVED. DC PAPERS SIGN. ALL BELONGINGS SENT WITH PATIENT.
[2019-03-04 20:43] VITALS: BP 112/54
== END 2019-03-04 18:00 | disposition home or self-care (01) | DRG 683 ==
LOC: ER 16:34 → EROBS 18:58 → 2N 18:58
PROVIDERS: Emergency Medicine; Hospitalist; Nurse Practitioner Acute Care; ADMIT Internal Medicine
DX: N17.9 Acute kidney failure, unspecified (principal); I42.9 Cardiomyopathy, unspecified; I50.22 Chronic systolic (congestive) heart failure; Z68.43 Body mass index [BMI] 50.0-59.9, adult; I13.0 Hypertensive heart and chronic kidney disease with heart failure and stage 1 through stage 4 chronic kidney disease, or unspecified chronic kidney disease; I95.9 Hypotension, unspecified; M79.10 Myalgia, unspecified site; E66.01 Morbid (severe) obesity due to excess calories; G47.33 Obstructive sleep apnea (adult) (pediatric); E78.5 Hyperlipidemia, unspecified; T50.905A Adverse effect of unspecified drugs, medicaments and biological substances, initial encounter; N14.2 Nephropathy induced by unspecified drug, medicament or biological substance; I27.20 Pulmonary hypertension, unspecified; Z60.2 Problems related to living alone; N18.9 Chronic kidney disease, unspecified; G45.4 Transient global amnesia; Z86.010 Personal history of colon polyps; Z88.6 Allergy status to analgesic agent; Z88.0 Allergy status to penicillin; Z88.2 Allergy status to sulfonamides; Z88.8 Allergy status to other drugs, medicaments and biological substances; Z82.49 Family history of ischemic heart disease and other diseases of the circulatory system; Z83.3 Family history of diabetes mellitus; Z83.6 Family history of other diseases of the respiratory system
CPT/HCPCS: 10081

== ENCOUNTER → 2021-02-08 | Outpatient (CLI) | payer BC ==
[~2021-02-08] MED LIST changes: +BENICAR20 MG PO
== END ==
LOC: SJCVCIMAG 07:55
PROVIDERS: ATTEND Internal Medicine Cardiovascular Disease
DX: I34.0 Nonrheumatic mitral (valve) insufficiency (principal); I50.9 Heart failure, unspecified; I42.9 Cardiomyopathy, unspecified; E66.9 Obesity, unspecified; G47.33 Obstructive sleep apnea (adult) (pediatric)